=== PATIENT | female | born 1930 | race Caucasian/White ===

== ENCOUNTER 2016-11-09 01:17 | Emergency (ER) | payer MEDICARE, OTHER ==
--- NOTE | 2016-11-09 01:41 | ERNOTE ---
Upper Extremity HPI - Narrative Date of Service: 11/09/16 - General Extremities Pain Location: shoulder: left Time Seen by Provider: 11/09/16 01:20 - Immun/Allergies/Home Medications Immunizations: IMMUNIZATION HX Immunizations Up to Date Yes History of Influenza Vaccine Yes Hx Pneumococcal Vaccination Yes Allergies/Adverse Reactions: Allergies Allergy/AdvReac Type Severity Reaction Status Date / Time fluconazole Allergy Intermediate reacted Verified 01/16/15 10:14 with coumadin pneumococcal vaccine Allergy Intermediate fever Verified 01/16/15 10:14 [Pneumococcal Vaccine] angioedema Heparin Analogues Allergy Mild Hives Verified 01/16/15 10:14 [Heparin Agents] penicillin V potassium Allergy Mild rash Verified 01/16/15 10:14 [From [employer]] Home Medications: HOME MEDICATIONS Colchicine [Colcrys] 0.6 mg PO DAILY 11/09/16 [Last Taken Unknown] DULoxetine HCL [Cymbalta] 20 mg PO DAILY 11/09/16 [Last Taken Unknown] Furosemide 20 mg PO DAILY 11/09/16 [Last Taken Unknown] Memantine HCl/Donepezil HCl [Namzaric 28 mg-10 mg Capsule] 1 each PO DAILY 11/09 [Last Taken Unknown] Mirtazapine [Remeron] 45 mg PO HS 11/09/16 [Last Taken Unknown] Pramipexole Di-HCl [Mirapex] 0.5 mg PO HS 11/09/16 [Last Taken Unknown] Primidone [Mysoline] 50 mg PO BID 11/09/16 [Last Taken Unknown] Propranolol HCl [Inderal] 10 mg PO BID 11/09/16 [Last Taken Unknown] levETIRAcetam [Keppra] 750 mg PO BID 11/09/16 [Last Taken Unknown] - History of Present Illness Narrative: This is an 85-year-old female who comes to the emergency department complaining that she has significant tremor in her left arm as well as difficulty with range of motion due to pain. The patient says that she thinks she slept on her left shoulder couple of nights ago. Last night and yesterday she says that she had no energy and slept essentially throughout the entire day and night. She did get up to take her medicines but was only up moving around briefly. She uses the term "passed out" but when I discussed with her she says she just didn' t have much energy or desire to get up and move around. She denies any true chest pain or shortness of breath she denies any blurred vision neuromuscular weakness or loss of sensation loss of bowel or bladder function. The patient denies any nausea vomiting or diarrhea denies any urinary symptoms. The patient admits that she has a tremor in all of her extremities but says that the tremor in her left arm has gotten much worse in the last 2 days. She has never had similar symptoms in the past Review of Systems - Review of Systems Constitutional: Present: fatigue, malaise EYE: Present: no symptoms reported ENT: Present: no symptoms reported Respiratory: Present: no symptoms reported. Absent: shortness of breath, cough , wheezing Cardiology: Present: no symptoms reported. Absent: chest pain, palpitations Gastrointestinal/Abdominal: Present: no symptoms reported. Absent: nausea, vomiting, diarrhea Genitourinary: Present: no symptoms reported Musculoskeletal: Present: joint pain, other - Limited range of motion to the left shoulder due to pain Skin: Present: no symptoms reported Neurological: Present: no symptoms reported, other - significant tremor in the left upper extremity which is new Endocrine: Present: no symptoms reported Hematologic/Lymphatic: Present: no symptoms reported Psych: Present: no symptoms reported All Other Systems: All systems neg except as marked - Patient's Past Medical History Patient History - Medical: Osteoarthritis, Other, Seizures Patient History - Cardiac/Respiratory: Arrhythmias, CHF, Deep Vein Thrombosis Patient History - Cancer: Other Patient History - Surgical Procedures: Appendectomy, Hysterectomy, Total Hip Replacement, Hernia Repair, Orthopedic Patient History - Other: None - Social History Living Situations: home Psych History: No pertinent hx Smoking Status: Never smoker Alcohol Use: none Drug Use: none - Immunizations Immunizations Up to Date: Yes Hx Pneumococcal Vaccination: Yes History of Influenza Vaccine: Yes Physical Exam - Physical Exam General Appearance: Present: wd/wn, alert, no apparent distress, other - frail woman laying in bed in no apparent distress Head Exam: Present: normal inspection, no evidence of injury Eye Exam: Normal inspection: bilateral, PERRL: bilateral, EOMI: bilateral Ears, Nose, Throat: Present: normal ENT inspection, normal pharynx Neck: Present: normal inspection, nontender Respiratory: Present: no respiratory distress, normal breath sounds, chest nontender, lungs clear Cardiovascular/Chest: Present: bradycardia, other - irregular as well systolic murmur best heard over the left lower sternal border and the right upper sternal border Gastrointestinal/Abdominal: Present: normal bowel sounds, nontender, nondistended, soft, no organomegaly Rectal Exam: Present: deferred Pelvic Exam: Present: deferred Back Exam: Present: normal inspection, normal range of motion, no CVA tenderness , no vertebral tenderness Extremity Exam: Present: normal inspection, no edema, other - the patient has limited range of motion of the left shoulder due to pain. This is both active and passive. Significant tremor left upper extremity mild tremor right upper extremity Neurological Exam: Present: alert, oriented, normal mood/affect, no motor/ sensory deficits Skin Exam: Present: normal color, warm/dry Lymphatic Exam: Present: no adenopathy ED Progress - Results and Orders Patient's Lab Results:: I have reviewed the patient's lab results. - Vital Signs Patient's Vital Signs:: I have reviewed the patient's vital signs. Vital Signs: Vital Signs 11/09/16 01:22 Temperature 36.6 C Pulse Rate 101 H Respiratory 18 Rate Blood Pressure 143/75 O2 Sat by Pulse 98 Oximetry - EKG EKG: other EKG read: Interp. by ny EKG Comments: afib with slow ventricular response. Normal axis. No acute ischemic changes. - X-Ray X-Ray #1 X-Ray: chest Interpretation: Interp. by me - left humerus fracture at the shoulder. No acute cardiopulmonary disease X-Ray #2 X-Ray: shoulder - left fracture of the humerus at the shoulder. No comminution is noted Interpretation: Interp. by me - CT/Ultrasound CT/Ultrasound Narrative: Age-related degenerative changes no acute intracranial abnormality - Progress/Reassessment Chief Complaint: Upper Extremity Injury/Problem Plan - Plan Plan: Plan patient is persistently bradycardic. She is only on propranolol 10 mg. This is a single agent and would not cause atrial fibrillation with a slow ventricular response. I have attempted to admitted to our hospital however we do not have a professional development manager for another 10 days. Therefore I have spoken with Dr. Gomez [facility] who is graciously agreed to admit the patient to the emergency room there. The patient is getting IV fluids. We will put her in a sling. Departure Clinical Impression: Humerus head fracture, Symptomatic bradycardia - Departure Disposition: [facility] Condition: Stable Referrals: Nguyen Bryant MD [Primary Care Provider] -
[2016-11-09 01:49] LABS: Hematocrit 34.6 % (37.0-47.0); Hemoglobin 11.3 gm/dL (12.5-16.0); Mean Cell Volume 97.5 fl (78-100); Mean Corpuscular Hemoglobin 31.8 pg (27-31); Mean Corpuscular Hgb Conc 32.7 g/dl (32-36); Neutrophil # 2.4 K/mm3 (1.3-6.0); Neutrophil % 43.7 % (42-75.0); Platelet Count 197 K/mm3 (150-450); Red Blood Count 3.55 M/mm3 (4.2-5.4); Red Cell Distribution Width 14.7 % (11.5-14.0); White Blood Count 5.5 K/mm3 (4.0-10.5)
[2016-11-09 02:08] LABS: INR 1.54 INR (0.90-1.10)
[2016-11-09 02:10] LABS: ALT 20 U/L (19-67); AST 23 U/L (0-48); Albumin * 3.2 gm/dl (3.4-5.0); Alkaline Phosphatase * 89 U/L (50-170); BUN/Creatinine Ratio 32.2 (9.0-21.6); Bilirubin, Total 0.3 mg/dL (0.0-1.1); Blood Urea Nitrogen 29 mg/dL (3-23); Ca. Corrected For Albumin 8.8 mg/dL (8.4-10.2); Calcium * 8.5 mg/dL (7.9-10.9); Chloride 106 mmol/L (97-106); Glucose * 99 mg/dL (70-110); Sodium 143 mmol/L (132-142); Total Protein 6.4 gm/dL (6.2-8.2); Troponin I Less than 0.017 ng/ml (0.00-0.10)
[2016-11-09 02:29] LABS: Urine Amorphous Sediment TRACE (NONE-FEW); Urine Appearance Clear; Urine Bacteria None Seen; Urine Bilirubin Negative (NEGATIVE); Urine Blood Negative /ul (NEGATIVE); Urine Color Yellow; Urine Ketone Negative (NEGATIVE); Urine Mucus TRACE; Urine Nitrite Negative (NEGATIVE); Urine Protein Negative (NEGATIVE); Urine RBC None Seen /hpf (0-5); Urine Urobilinogen Normal (NORMAL); Urine WBC None Seen /hpf (0-5); Urine pH 5.5 pH (5.0-7.0)
[2016-11-09] MEDS ORDERED: NORMAL SALINE 1,000 ML IV ONE (03:05)
[2016-11-09] MEDS ORDERED: MORPHINE SULFATE 4 MG/ML SYRG IV ONE (07:30)
[2016-11-09] MEDS ORDERED: MORPHINE SULFATE 4 MG/ML SYRG ONE (07:31)
[2016-11-09 07:47] VITALS: BP 112/61
== END 2016-11-09 08:35 | disposition short-term general hospital (02) ==
LOC: ER 01:17
PROC: 0T9B7ZZ Drainage of Bladder, Via Natural or Artificial Opening (ICD-10-PCS; principal; 2016-11-09)
DX: M84.422A Pathological fracture, left humerus, initial encounter for fracture (principal); R00.1 Bradycardia, unspecified; M19.90 Unspecified osteoarthritis, unspecified site; G40.409 Other generalized epilepsy and epileptic syndromes, not intractable, without status epilepticus; I50.9 Heart failure, unspecified; Z86.718 Personal history of other venous thrombosis and embolism; Z79.01 Long term (current) use of anticoagulants

== ENCOUNTER 2017-03-17 08:16 | Emergency (ER) | payer MEDICARE, OTHER ==
--- NOTE | 2017-03-17 09:06 | ERNOTE ---
Neuro HPI ER Record Presenting Symptoms: other - seizure Time Seen by Provider: 03/17/17 08:49 Source: patient, family Exam Limitations: dementia Immunizations: IMMUNIZATION HX Immunizations Up to Date Yes History of Influenza Vaccine Yes Hx Pneumococcal Vaccination Yes Allergies/Adverse Reactions: Allergies Allergy/AdvReac Type Severity Reaction Status Date / Time fluconazole Allergy Intermediate reacted Verified 03/17/17 08:40 with coumadin pneumococcal vaccine Allergy Intermediate fever Verified 03/17/17 08:40 [Pneumococcal Vaccine] angioedema Heparin Analogues Allergy Mild Hives Verified 03/17/17 08:40 [Heparin Agents] penicillin V potassium Allergy Mild rash Verified 03/17/17 08:40 [From [employer]] Home Medications: HOME MEDICATIONS DULoxetine HCL [Cymbalta] 20 mg PO DAILY 11/09/16 [Last Taken Unknown] Furosemide 20 mg PO DAILY 11/09/16 [Last Taken Unknown] Memantine HCl/Donepezil HCl [Namzaric 28 mg-10 mg Capsule] 1 each PO DAILY 11/09 [Last Taken Unknown] Primidone [Mysoline] 50 mg PO BID 11/09/16 [Last Taken Unknown] Propranolol HCl [Inderal] 10 mg PO BID 11/09/16 [Last Taken Unknown] levETIRAcetam [Keppra] 750 mg PO BID 11/09/16 [Last Taken Unknown] - History of Present Illness Narrative: Patient has a history of seizures, can't specify what type, last about two years ago per sister She states that she has been shaking all night, mainly her arms. She also complains that the top of her head feels hot, denies any recent falls or injuries, no recent illness. She has a diagnosis of dementia, still lives by herself at home Review of Systems - Review of Systems Constitutional: Absent: recent illness, fever EYE: Absent: double vision ENT: Absent: nose pain, nose congestion, sore throat Respiratory: Absent: shortness of breath Cardiology: Absent: chest pain Gastrointestinal/Abdominal: Absent: nausea, abdominal pain Genitourinary: Present: no symptoms reported Musculoskeletal: Present: no symptoms reported Skin: Present: See HPI Neurological: Present: See HPI, seizure. Absent: weakness, numbness - Patient's Past Medical History Patient History - Medical: Dementia, Osteoarthritis, Seizures, Other Patient History - Cardiac/Respiratory: CHF, Deep Vein Thrombosis, Deep Vein Thrombosis, Other Patient History - Cancer: No Hx of Cancer Patient History - Surgical Procedures: Appendectomy, Hysterectomy, Total Hip Replacement, Hernia Repair, Orthopedic Patient History - Other: None LMP (females 10-50): Menopausal - Social History Living Situations: alone Psych History: No pertinent hx Smoking Status: Never smoker Alcohol Use: none Drug Use: none - Immunizations Immunizations Up to Date: Yes Hx Pneumococcal Vaccination: Yes History of Influenza Vaccine: Yes Physical Exam - Physical Exam General Appearance: Present: wd/wn, alert, no apparent distress Head Exam: Present: normal inspection, no evidence of injury Eye Exam: Normal inspection: bilateral, PERRL: bilateral, EOMI: bilateral Ears, Nose, Throat: Present: normal ENT inspection, normal pharynx Neck: Present: normal inspection, nontender Respiratory: Present: no respiratory distress, normal breath sounds, lungs clear Cardiovascular/Chest: Present: regular rate, rhythm, no murmur Gastrointestinal/Abdominal: Present: nontender, nondistended Extremity Exam: Present: normal inspection, no edema Neurological Exam: Present: alert, oriented, normal mood/affect, no motor/ sensory deficits, other - arms shaking with coarse tremor stops when holding patient's hand and while talking to her, resumes with neuroexam, with finger nose resting tremor as well as coarse intention tremor Skin Exam: Present: normal color, warm/dry [place] Coma Scale - Assess Eye Opening: Spontaneous Motor: Obeys Commands Verbal: Oriented - Total Coma Scale Total: 15 ED Progress - Results and Orders Patient's Lab Results:: I have reviewed the patient's lab results. - Vital Signs Patient's Vital Signs:: I have reviewed the patient's vital signs. Vital Signs: Vital Signs 03/17/17 08:32 Temperature 36.7 C Pulse Rate 61 Respiratory 16 Rate Blood Pressure 143/67 O2 Sat by Pulse 98 Oximetry - CT/Ultrasound CT/Ultrasound Narrative: CT head: no acute changes - Progress/Reassessment Chief Complaint: Seizure Activity Progress Note-Subjective: 03/17/17 10:30 patient resting in bed, no shaking, discussed test results Departure Clinical Impression: Coarse tremors - Departure Disposition: Home self-care Condition: Stable Instructions: Tremor Additional Instructions: call your neurologist for follow up Referrals: Nguyen Bryant MD [Primary Care Provider] - James Santos MD [Non Staff Physicians] -
[2017-03-17 09:21] LABS: Hematocrit 35.4 % (37.0-47.0); Hemoglobin 11.5 gm/dL (12.5-16.0); Mean Cell Volume 94.4 fl (78-100); Mean Corpuscular Hemoglobin 30.7 pg (27-31); Mean Corpuscular Hgb Conc 32.5 g/dl (32-36); Mean Platelet Volume 10.1 fl (6.0-9.5); Platelet Count 201 K/mm3 (150-450); Red Blood Count 3.75 M/mm3 (4.2-5.4); Red Cell Distribution Width 14.2 % (11.5-14.0); White Blood Count 4.9 K/mm3 (4.0-10.5)
[2017-03-17 09:25] LABS: Total Cells Counted 100
[2017-03-17 09:30] LABS: INR 1.69 INR (0.90-1.10)
[2017-03-17 09:34] LABS: Anion Gap 10.9 mmol/L (6.8-13.8); BUN/Creatinine Ratio 18.7 (9.0-21.6); Bilirubin, Total 0.2 mg/dL (0.0-1.1); CRP 0.3 mg/dL (0.0-0.9); Ca. Corrected For Albumin 9.3 mg/dL (8.4-10.2); Calcium * 8.8 mg/dL (7.9-10.9); Carbon Dioxide 31.1 mmol/L (24-32.6); Eosinophil 2 % (0-3); Immature Granulocyte 3 (0-1); Lymphocyte 30 % (20-51); Monocyte 6 % (0-9); Neutrophil 59 % (42-75); Neutrophil # 2.9 K/mm3 (1.3-6.0); Total Protein 6.7 gm/dL (6.2-8.2)
[2017-03-17 09:35] LABS: Platelet Estimate Normal (NORMAL); RBC Morphology Normal (NORMAL)
[2017-03-17 10:15] LABS: Urine Bilirubin Negative (NEGATIVE); Urine Blood Negative /ul (NEGATIVE); Urine Ketone Negative (NEGATIVE); Urine Nitrite Negative (NEGATIVE); Urine Protein Negative (NEGATIVE); Urine Specific Gravity 1.015 SP.GR. (1.005-1.010); Urine Urobilinogen Normal (NORMAL)
[2017-03-17 10:24] LABS: Urine Appearance Clear; Urine Bacteria None Seen; Urine Color Yellow; Urine RBC None Seen /hpf (0-5); Urine WBC 0-5 /hpf (0-5)
[2017-03-17 10:49] VITALS: BP 140/65
== END 2017-03-17 10:49 | disposition home or self-care (01) ==
LOC: ER 08:16
DX: G25.2 Other specified forms of tremor (principal); Z86.718 Personal history of other venous thrombosis and embolism; R40.2410 Glasgow coma scale score 13-15, unspecified time

== ENCOUNTER 2017-05-02 19:05 | Emergency (ER) | payer MEDICARE, OTHER ==
[2017-05-02 19:44] LABS: Hematocrit 36.5 % (37.0-47.0); Hemoglobin 12.2 gm/dL (12.5-16.0); Mean Cell Volume 92.6 fl (78-100); Mean Corpuscular Hgb Conc 33.4 g/dl (32-36); Mean Platelet Volume 10.1 fl (6.0-9.5); Neutrophil # 4.3 K/mm3 (1.3-6.0); Neutrophil % 61.1 % (42-75.0); Platelet Count 227 K/mm3 (150-450); Red Blood Count 3.94 M/mm3 (4.2-5.4); Red Cell Distribution Width 14.4 % (11.5-14.0)
[2017-05-02 20:03] LABS: Prothrombin Time (Patient) 21.3 Seconds (9.0-11.0)
--- NOTE | 2017-05-02 20:05 | ERNOTE ---
Lower Extremity HPI - Narrative Date of Service: 05/02/17 - General Lower Extremities Pain: leg: right Time Seen by Provider: 05/02/17 19:30 Source: patient Exam Limitations: no limitations - Immun/Allergies/Home Medications Immunizations: IMMUNIZATION HX Immunizations Up to Date Yes History of Influenza Vaccine Yes Hx Pneumococcal Vaccination Yes Allergies/Adverse Reactions: Allergies Allergy/AdvReac Type Severity Reaction Status Date / Time fluconazole Allergy Intermediate reacted Verified 05/02/17 19:34 with coumadin pneumococcal vaccine Allergy Intermediate fever Verified 05/02/17 19:34 [Pneumococcal Vaccine] angioedema Heparin Analogues Allergy Mild Hives Verified 05/02/17 19:34 [Heparin Agents] penicillin V potassium Allergy Mild rash Verified 05/02/17 19:34 [From [employer]] Home Medications: HOME MEDICATIONS DULoxetine HCL [Cymbalta] 20 mg PO DAILY 11/09/16 [Last Taken Unknown] Furosemide 20 mg PO DAILY 11/09/16 [Last Taken Unknown] Memantine HCl/Donepezil HCl [Namzaric 28 mg-10 mg Capsule] 1 each PO DAILY 11/09 [Last Taken Unknown] Primidone [Mysoline] 50 mg PO BID 11/09/16 [Last Taken Unknown] Propranolol HCl [Inderal] 10 mg PO BID 11/09/16 [Last Taken Unknown] levETIRAcetam [Keppra] 750 mg PO BID 11/09/16 [Last Taken Unknown] Cephalexin Monohydrate [Keflex] 500 mg PO QID #40 cap 05/02/17 [Last Taken Unknown] - History of Present Illness Narrative: Pt. comes in with c/o RLE swelling and pain in her calf and post knee. 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 Pt. denies any numbness, tingling, SOB, or CP. Pt. denies any alleviating or aggravating factors or prehospital treatment. Pt. wears tubagrip for chronic venous insufficiency. Occurred: this morning Method of Injury: Reports: no apparent injury, unknown Modifying Factors - (Improves): Reports: other - denies Modifying Factors - (Worsens): Reports: other - walking Other Injuries: Reports: none Subsequent Symptoms: Denies: sensory loss, numbness, motor loss Prior Treament: Reports: similar symptoms before. Denies: recently seen, treated by physician, recently hospitalized, currently on antibiotics Review of Systems - Review of Systems Constitutional: Present: no symptoms reported. Absent: fever, chills, weakness , fatigue, malaise EYE: Present: no symptoms reported. Absent: eye pain, double vision ENT: Present: no symptoms reported Respiratory: Present: no symptoms reported. Absent: shortness of breath, cough , wheezing Cardiology: Present: edema - RLE. Absent: chest pain, palpitations Gastrointestinal/Abdominal: Present: no symptoms reported. Absent: nausea, vomiting, diarrhea, abdominal pain Genitourinary: Present: no symptoms reported. Absent: frequency, decreased urinary output Musculoskeletal: Present: muscle pain - RLE calf. Absent: back pain, joint pain Skin: Present: change in color - R post knee redness Neurological: Present: no symptoms reported Endocrine: Present: no symptoms reported Hematologic/Lymphatic: Present: no symptoms reported All Other Systems: All systems neg except as marked - Patient's Past Medical History Patient History - Medical: Anxiety, Dementia, Depression, Osteoarthritis, Seizures Patient History - Cardiac/Respiratory: Asthma, Bronchitis, CHF, COPD, CVA/Stroke , Deep Vein Thrombosis, Hypertension, Hyperlipidemia, Sleep Apnea Patient History - Cancer: No Hx of Cancer Patient History - Surgical Procedures: Appendectomy, Cataracts, Colonoscopy, EGD , Hysterectomy Patient History - Other: None - Social History Living Situations: alone Psych History: Hx of Depression Smoking Status: Never smoker Have you smoked in the past 12 months: No Do you dip or chew tobacco: No Alcohol Use: none Drug Use: none - Immunizations Immunizations Up to Date: Yes Hx Pneumococcal Vaccination: Yes History of Influenza Vaccine: Yes Physical Exam - Physical Exam General Appearance: Present: wd/wn, alert, no apparent distress Head Exam: Present: normal inspection, no evidence of injury, no tenderness w palpation Eye Exam: Normal inspection: bilateral Ears, Nose, Throat: Present: normal ENT inspection, normal pharynx Neck: Present: normal inspection, nontender, supple, full range of motion. Absent: lymphadenopathy (R), lymphadenopathy (L) Respiratory: Present: no respiratory distress, normal breath sounds, no accessory muscle use, chest nontender, lungs clear Cardiovascular/Chest: Present: regular rate, rhythm, no murmur, normal peripheral pulses Gastrointestinal/Abdominal: Present: normal bowel sounds, nontender, nondistended, soft, no organomegaly Back Exam: Present: normal inspection Extremity Exam: Present: normal range of motion, calf tenderness - R, extremity edema - from knee to foot +2 pitting Neurological Exam: Present: alert, oriented, normal mood/affect, no motor/ sensory deficits Skin Exam: Present: normal color, warm/dry. Absent: pallor, skin rash ED Progress - Date and Time Seen: Date and Time: 05/02/17 20:56 Do not feel that pt. has PE as she is not tachycardiac, hypoxic, or SOB. Pt. BNP not terribly elevated for pt. norm so do not feel that swelling is related to this feel it is either DVT or cellulitis due to the discoloration and warmth 05/02/17 21:19 US negative for DVT except for fluid collection on lateral R knee this could be an abscess or a cyst so will treat with antibiotics and have her follow up with her PCP as nothing is fluctuant at this time - Results and Orders Patient's Lab Results:: I have reviewed the patient's lab results. - Vital Signs Patient's Vital Signs:: I have reviewed the patient's vital signs. Vital Signs: Vital Signs 05/02/17 19:18 Temperature 36.7 C Pulse Rate 82 Respiratory 18 Rate Blood Pressure 135/68 O2 Sat by Pulse 98 Oximetry - CT/Ultrasound CT/Ultrasound Narrative: US negative for DVT - Progress/Reassessment Chief Complaint: Lower Extremity Pain/ Injury Progress:: Unchanged Departure Clinical Impression: Cellulitis Qualifiers: Site of cellulitis: extremity Site of cellulitis of extremity: lower extremity Laterality: right Qualified Code(s): L03.115 - Cellulitis of right lower limb - Departure Disposition: Home Follow Up Needed Condition: Good Instructions: Cellulitis, Adult, [id number] Additional Instructions: Please follow up with primary provider in 2-3 days to reevaluate and determine if cyst becomes fluctuant and if he feels you need it drained. Referrals: Nguyen Bryant MD [Primary Care Provider] - Prescriptions: Cephalexin Monohydrate [Keflex] 500 mg PO QID #40 cap
[2017-05-02 20:09] LABS: INR 2.11 INR (0.90-1.10)
[2017-05-02 20:16] LABS: Albumin * 3.3 gm/dl (3.4-5.0); Anion Gap 13.7 mmol/L (6.8-13.8); BUN/Creatinine Ratio 22.1 (9.0-21.6); Bilirubin, Total 0.3 mg/dL (0.0-1.1); CRP 0.3 mg/dL (0.0-0.9); Ca. Corrected For Albumin 8.7 mg/dL (8.4-10.2); Calcium * 8.5 mg/dL (7.9-10.9); Carbon Dioxide 29.3 mmol/L (24-32.6); Total Protein 7.4 gm/dL (6.2-8.2)
[2017-05-02 21:46] VITALS: BP 137/68
== END 2017-05-02 21:45 | disposition home or self-care (01) ==
LOC: ER 19:05
DX: L03.115 Cellulitis of right lower limb (principal); I11.0 Hypertensive heart disease with heart failure; I50.9 Heart failure, unspecified; J44.9 Chronic obstructive pulmonary disease, unspecified; E78.5 Hyperlipidemia, unspecified; F03.90 Unspecified dementia, unspecified severity, without behavioral disturbance, psychotic disturbance, mood disturbance, and anxiety; F32.9 Major depressive disorder, single episode, unspecified; Z86.718 Personal history of other venous thrombosis and embolism; Z79.01 Long term (current) use of anticoagulants; Z86.73 Personal history of transient ischemic attack (TIA), and cerebral infarction without residual deficits